=== PATIENT | female | born 2000 | race Hispanic/Latino ===

== ENCOUNTER 2024-02-11 23:20 | Emergency (ER) | payer SELFPAY ==
[2024-02-12] MEDS ORDERED: NA CHLORIDE 0.9% 1,000 ML ONE (00:15)
[2024-02-12] MEDS ORDERED: ONDANSETRON 4 MG/2 ML VIAL ONE (00:15)
[2024-02-12] MEDS ORDERED: FAMOTIDINE 20 MG/2 ML VIAL IV ONE (00:15)
[2024-02-12 00:20] LABS: Absolute Basophils 0.1 K/uL (0-0.5); Absolute Eosinophils 0.2 K/uL (0-0.5); Absolute Lymphocytes (CBC) 2.1 K/uL (0.7-4.9); Absolute Monocytes 0.7 K/uL (0.1-1.3); Absolute Neutrophil 5.3 K/uL (1.8-8.0); Eosinophils % 2.3 % (0-4.4); Hematocrit 39.6 % (36.0-45.0); Hemoglobin 13.3 g/dL (12.0-15.0); Lymphocytes % 25.2 % (15.3-44.8); MCH 28.3 pg (27.0-35.0); MCHC 33.5 g/dL (32.0-36.0); MCV 84.3 fL (80-100); MPV 8.2 fL (7.6-11.3); Monocytes % 8.2 % (3.3-12.3); Neutrophils % 63.3 % (41.7-73.7); Nucleated RBC Absolute Count 0.1 (0-0); Nucleated Red Blood Cells % 1.2 % (0-0); Platelets 280 thou/uL (152-406); Red Cell Distribution Width 14.8 % (12.1-15.2)
[2024-02-12 00:34] LABS: Specific Gravity 1.031 (1.005-1.030); Specific Gravity > 1.030 (1.005-1.030); Sqamous Epithelial <5 /HPF (None Seen); Urine Bacteria None Seen /HPF (<20); Urine Bilirubin NEGATIVE (Negative); Urine Blood Negative (Negative); Urine Clarity Clear (Clear); Urine Color Light-Yellow (Yellow); Urine Culture Reflex Order NOT NEEDED; Urine Glucose NEGATIVE (Negative); Urine Ketones NEGATIVE (Negative); Urine Microscopic Reflex YN ORDER UMIC; Urine Mucus 1+ /HPF (None Seen); Urine Nitrite NEGATIVE (Negative); Urine Protein TRACE (Negative); Urine RBC <5 /HPF (None Seen); Urine Urobilinogen 1+ (Normal); Urine WBC <5 /HPF (<5); Urine pH 5.5 (5.0-7.0)
[2024-02-12] MEDS ORDERED: KETOROLAC 30 MG/ML INJ ONE (00:41)
[2024-02-12 00:45] LABS: Albumin/Globulin Ratio 1.2 (1.1-1.8); Anion Gap 6.4 mEq/L (5.0-15.0); Bilirubin Total 0.4 mg/dL (0.2-1.0); Globulin 3.4 g/dL (2.3-3.5); Potassium 3.4 mEq/L (3.5-5.1); Protein, Total 7.4 g/dL (6.4-8.2)
--- NOTE | 2024-02-12 01:38 | ER ---
Nurse's Notes [facility] Name: Ольга Hutchinson Age: 23 yrs Sex: Female : 2000 Arrival Date: 02/11/2024 Time: 23:20 Bed 6 Private MD: Diagnosis: Epigastric pain;Nausea Presentation: 02/10 23:37 Chief complaint: Patient states: abdominal pain that has been off and on today but has as6 greatly worsened in the last 2 hours. Coronavirus screen: At this time, the client does not indicate any symptoms associated with coronavirus-19. Ebola Screen: No symptoms or risks identified at this time. Initial Sepsis Screen: Does the patient meet any 2 criteria? No. Patient's initial sepsis screen is negative. Does the patient have a suspected source of infection? No. Patient's initial sepsis screen is negative. Risk Assessment: Do you want to hurt yourself or someone else? Patient reports no desire to harm self or others. Onset of symptoms was February 11, 2024. 23:37 Acuity: RACHELLE 3 as6 23:37 Method Of Arrival: Ambulatory as6 Triage Assessment: 23:36 General: Appears uncomfortable, Behavior is calm, cooperative. Pain: Complains of pain as6 in abdomen. GI: Reports upper abdominal pain, nausea. 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 - Infectious Disease History:: Denies. - Social history:: Smoking status: Patient reports the use of cigarette tobacco products. Screenin/06 00:20 [facility] ED Fall Risk Assessment (Adult) History of falling in the last 3 months, bm8 including since admission No falls in past 3 months (0 pts) Confusion or Disorientation No (0 pts) Intoxicated or Sedated No (0 pts) Impaired Gait No (0 pts) Mobility Assist Device Used No (0 pt) Altered Elimination No (0 pt) Score/Fall Risk Level 0 - 2 = Low Risk. [facility] ED Fall Risk Assessment (Adult) Score/Fall Risk Level 0 - 2 = Low Risk Oriented to surroundings, Maintained a safe environment, Educated pt \T\ family on fall prevention, incl call for assistance when getting out of bed. Abuse screen: Denies threats or abuse. Nutritional screening: No deficits noted. Tuberculosis screening: No symptoms or risk factors identified. Assessment: 00:20 Reassessment: Patient appears in no apparent distress at this time. Patient and/or bm8 family updated on plan of care and expected duration. Pain level reassessed. Patient is alert, oriented x 3, equal unlabored respirations, skin warm/dry/pink. General: Appears in no apparent distress. uncomfortable, Behavior is calm, cooperative, appropriate for age. Pain: Complains of pain in epigastric area Pain does not radiate. Pain currently is 10 out of 10 on a pain scale. Quality of pain is described as burning, Pain began This morning about 0800 Is intermittent, lasting more than 1 hour. Neuro: No deficits noted. Level of Consciousness is awake, alert, obeys commands, Oriented to person, place, time, situation. Cardiovascular: No deficits noted. Denies chest pain, shortness of breath, Heart tones S1 S2 Capillary refill < 3 seconds Patient's skin is warm and dry. Respiratory: No deficits noted. Airway is patent Respiratory effort is even, unlabored, Respiratory pattern is regular, Breath sounds are clear bilaterally. GI: Bowel sounds present X 4 quads. Abd is soft and non tender X 4 quads. Reports upper abdominal pain, epigastric pain, indigestion, Pain is 10 out of 10 on a pain scale. : No deficits noted. No signs and/or symptoms were reported regarding the genitourinary system. EENT: No deficits noted. No signs and/or symptoms were reported regarding the EENT system. Derm: No deficits noted. No signs and/or symptoms reported regarding the dermatologic system. Musculoskeletal: No deficits noted. No signs and/or symptoms reported regarding the musculoskeletal system. 01:51 Reassessment: Patient appears in no apparent distress at this time. Patient and/or bm8 family updated on plan of care and expected duration. Pain level reassessed. Patient is alert, oriented x 3, equal unlabored respirations, skin warm/dry/pink. Patient states feeling better. Patient states symptoms have improved. Vital Signs: 02/10 23:36 BP 114 / 76; Pulse 83; Resp 16 S; Temp 97.4(O); Pulse Ox 100% on R/A; Weight 70 kg (R); as6 Height 5 ft. 2 in. (R); Pain 8/10; 02/11 00:20 BP 113 / 75; Pulse 86; Resp 18; Temp 97.4; Pulse Ox 100% on R/A; Pain 10/10; bm8 01:51 BP 116 / 79; Pulse 86; Resp 20; Temp 97.5; Pulse Ox 100% on R/A; Pain 2/10; bm8 02/10 23:36 Body Mass Index 27.69 (70.00 kg, 159 cm) as6 02/10 23:36 Pain Scale: Adult as6 02/11 00:20 Pain Scale: Adult bm8 01:51 Pain Scale: Adult bm8 [place] Coma Score: 00:20 Eye Response: spontaneous(4). Motor Response: obeys commands(6). Verbal Response: bm8 oriented(5). Total: 15. ED Course: 02/10 23:24 Patient arrived in ED. im 23:26 Flo Manzano PA is PHCP. cp 23:26 Alonzo Tee MD is Attending Physician. cp 23:36 Arm band placed on. as6 23:38 Triage completed. 6 02/11 00:15 Renny Guerra, RN is Primary Nurse. bm8 00:16 CBC with Diff Sent. km8 00:16 CMP Sent. km8 00:16 Lipase Sent. km8 00:16 Test, Urine Sent. km8 00:16 Urinalysis w/ reflexes Sent. km8 00:20 Patient has correct armband on for positive identification. Bed in low position. Call bm8 light in reach. Side rails up X 1. Adult w/ patient. Pulse ox on. NIBP on. Door closed. Noise minimized. Visitors limited. Verbal reassurance given. 00:20 No provider procedures requiring assistance completed. Inserted saline lock: 20 gauge bm8 in right antecubital area, using aseptic technique. Blood collected. 00:30 US Abdomen Limited In Process Unspecified. EDMS 00:53 XRAY Chest (1 view) In Process Unspecified. EDMS 01:51 Provided Education on: discharge instructions. bm8 01:51 IV discontinued, intact, bleeding controlled, No redness/swelling at site. Pressure bm8 dressing applied. Administered Medications: 00:20 Drug: Ondansetron IVP 4 mg IVP once; over 2 minutes Route: IVP; Site: right antecubital;bm8 00:44 Follow up: Response: No adverse reaction bm8 00:44 Follow up: Response: No adverse reaction bm8 00:20 Drug: Famotidine IVP 20 mg IVP once; dilute with 10 mL 0.9% NaCl; give over 2 minutes bm8 Route: IVP; Site: right antecubital; 00:44 Follow up: Response: No adverse reaction bm8 01:50 Follow up: Response: No adverse reaction bm8 00:20 Drug: NS 0.9% IV 1000 ml IV at 1 bolus Per protocol; 1000 mL bolus Route: IV; Rate: 1 bm8 bolus; Site: right antecubital; 01:50 Follow up: Response: No adverse reaction; IV Status: Completed infusion; IV Intake: bm8 1000ml 00:40 Drug: Ketorolac IVP 15 mg IVP once Route: IVP; Site: right antecubital; bm8 01:40 Follow up: Response: No adverse reaction bm8 01:50 Drug: GI Cocktail without - (Maalox PO 30 ml, Lidocaine Mucous Membrane 2 % 15 bm8 ml) PO once Route: PO; 02:01 Follow up: Response: No adverse reaction bm8 Medication: 00:20 VIS not applicable for this client. bm8 Intake: 01:50 IV: 1000ml; Total: 1000ml. bm8 Outcome: 01:38 Discharge ordered by . cp 01:51 Discharged to home ambulatory, bm8 01:51 Condition: stable 01:51 Discharge instructions given to patient, family, Instructed on discharge instructions, follow up and referral plans. medication usage, safety practices, Demonstrated understanding of instructions, follow-up care, medications, Prescriptions given X 2, 01:59 Patient left the ED. bm8 Signatures: Dispatcher [employer] EDMS Flo Manzano PA PA cp Slawson, Ashby RN RN as6 Eneida Garcia Katie RN RN km8 Renny Guerra RN RN bm8
--- NOTE | 2024-02-12 01:38 | EDPHYS ---
Physician Documentation [facility] Name: Ольга Hutchinson Age: 23 yrs Sex: Female : 2000 Arrival Date: 02/11/2024 Time: 23:20 Bed 6 Private MD: ED Physician Alonzo Tee HPI: 02/10 23:50 This 23 yrs old Female presents to ER via Ambulatory with complaints of cp Abdominal Pain, Nausea. 23:50 The patient presents with abdominal pain in the upper abdomen. Associated signs and cp symptoms: Pertinent positives: nausea. 23:50 Onset: The symptoms/episode began/occurred today, and became worse 2 hour(s) ago. cp 23:50 The symptoms radiate to chest. The symptoms are described as waxing/waning. Severity of cp pain: in the emergency department the pain is actually worse. 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 - Infectious Disease History:: Denies. - Social history:: Smoking status: Patient reports the use of cigarette tobacco products. ROS: 23:55 Constitutional: Negative for body aches, chills, fever, poor PO intake, cp 23:55 Eyes: Negative for injury, pain, redness, and discharge, cp 23:55 ENT: Negative for drainage from ear(s), ear pain, sore throat, difficulty swallowing, difficulty handling secretions, 23:55 Respiratory: Negative for cough, shortness of breath, wheezing, 23:55 Abdomen/GI: Positive for abdominal pain, nausea, Negative for vomiting, diarrhea, constipation, 23:55 Back: Negative for pain at rest, pain with movement, 23:55 All other systems are negative, Exam: 23:59 Constitutional: The patient appears in no acute distress, alert, awake, cp non-diaphoretic, non-toxic, well developed, well nourished, uncomfortable, 23:59 Head/Face: Normocephalic, atraumatic. cp 23:59 Eyes: Periorbital structures: appear normal, Conjunctiva: normal, no exudate, no injection, Sclera: no appreciated abnormality, Lids and lashes: appear normal, bilaterally, 23:59 ENT: External ear(s): are unremarkable, Nose: is normal, Mouth: Lips: moist, Oral mucosa: pink and intact, moist, Posterior pharynx: Airway: no evidence of obstruction, patent, erythema, is not appreciated, 23:59 Chest/axilla: Inspection: normal, 23:59 Cardiovascular: Rate: normal, Rhythm: regular, 23:59 Respiratory: the patient does not display signs of respiratory distress, Respirations: normal, no use of accessory muscles, no retractions, labored breathing, is not present, Breath sounds: are clear throughout, no decreased breath sounds, no stridor, no wheezing, 23:59 Abdomen/GI: Inspection: abdomen appears normal, Bowel sounds: active, all quadrants, Palpation: soft, in all quadrants, moderate abdominal tenderness, in the epigastric area and right upper quadrant, rebound tenderness, is not appreciated, involuntary guarding, is not appreciated, 23:59 Back: CVA tenderness, is absent, Vital Signs: 23:36 BP 114 / 76; Pulse 83; Resp 16 S; Temp 97.4(O); Pulse Ox 100% on R/A; Weight 70 kg (R); as6 Height 5 ft. 2 in. (R); Pain 8/10; 02/11 00:20 BP 113 / 75; Pulse 86; Resp 18; Temp 97.4; Pulse Ox 100% on R/A; Pain 10/10; bm8 01:51 BP 116 / 79; Pulse 86; Resp 20; Temp 97.5; Pulse Ox 100% on R/A; Pain 2/10; bm8 02/10 23:36 Body Mass Index 27.69 (70.00 kg, 159 cm) as6 02/10 23:36 Pain Scale: Adult as6 02/11 00:20 Pain Scale: Adult bm8 01:51 Pain Scale: Adult bm8 [place] Score: 00:20 Eye Response: spontaneous(4). Motor Response: obeys commands(6). Verbal Response: bm8 oriented(5). Total: 15. MDM: 02/10 23:29 Patient medically screened. cp 02/11 00:00 Differential diagnosis: cholecystitis, Cholelithiasis, gastritis, gastroesophageal cp reflux disease, GI Bleed, non-specific abd pain, pancreatitis, Peptic Ulcer Disease, Perf. Duodenal Ulcer, Perf. Gastric Ulcer, Pyelonephritis, Ureterolithiasis, urinary tract infection. 01:37 Data reviewed: vital signs, nurses notes, lab test result(s), radiologic studies, plain cp films, ultrasound, and as a result, I will discharge patient. 01:37 I considered the following discharge prescriptions or medication management in the emergency department Medications were administered in the Emergency Department. See MAR. Counseling: I had a detailed discussion with the patient and/or guardian regarding the historical points, exam findings, and any diagnostic results supporting the discharge/admit diagnosis, lab results, radiology results, to return to the emergency department if symptoms worsen or persist or if there are any questions or concerns that arise at home. Response to treatment: the patient's symptoms have markedly improved after treatment, and as a result, I will discharge patient. Special discussion: Based on the patient's Hx, exam, and Dx evaluation, there is no indication for emergent surgery or inpatient Tx. It is understood by the patient/guardian that if the Sx's persist or worsen they need to return immediately for re-evaluation. 02/10 23:43 Order name: CBC with Diff; Complete Time: 00:48 02/11 00:48 Interpretation: Reviewed. 02/10 23:43 Order name: CMP; Complete Time: 00:48 02/11 00:48 Interpretation: Normal except: K 3.4. 02/10 23:43 Order name: Lipase; Complete Time: 00:48 02/10 23:43 Order name: Test, Urine; Complete Time: 00:48 02/10 23:43 Order name: Urinalysis w/ reflexes; Complete Time: 00:48 02/11 00:48 Interpretation: Normal except: Urine SG > 1.030; UPROT TRACE; UUROB 1+. 02/11 00:12 Order name: XRAY Chest (1 view) 02/11 00:12 Order name: US Abdomen Limited 02/10 23:43 Order name: IV Saline Lock; Complete Time: 00:15 02/10 23:43 Order name: Labs collected and sent; Complete Time: 00:16 cp Administered Medications: 00:20 Drug: Ondansetron IVP 4 mg IVP once; over 2 minutes Route: IVP; Site: right antecubital;bm8 00:44 Follow up: Response: No adverse reaction bm8 00:44 Follow up: Response: No adverse reaction bm8 00:20 Drug: Famotidine IVP 20 mg IVP once; dilute with 10 mL 0.9% NaCl; give over 2 minutes bm8 Route: IVP; Site: right antecubital; 00:44 Follow up: Response: No adverse reaction bm8 01:50 Follow up: Response: No adverse reaction bm8 00:20 Drug: NS 0.9% IV 1000 ml IV at 1 bolus Per protocol; 1000 mL bolus Route: IV; Rate: 1 bm8 bolus; Site: right antecubital; 01:50 Follow up: Response: No adverse reaction; IV Status: Completed infusion; IV Intake: bm8 1000ml 00:40 Drug: Ketorolac IVP 15 mg IVP once Route: IVP; Site: right antecubital; bm8 01:40 Follow up: Response: No adverse reaction bm8 01:50 Drug: GI Cocktail without - (Maalox PO 30 ml, Lidocaine Mucous Membrane 2 % 15 bm8 ml) PO once Route: PO; 02:01 Follow up: Response: No adverse reaction bm8 Disposition: 02/12 00:52 Co-signature as Attending Physician, Alonzo Tee MD I reviewed the patient's care rt provided by the Advanced Practice Provider and agree with the diagnosis and treatment plan. Disposition Summary: 02/12/24 01:38 Discharge Ordered Notes: Location: Home cp Problem: new cp Symptoms: have improved cp Condition: Stable cp Diagnosis - Epigastric pain cp - Nausea cp Followup: cp - With: Private Physician - When: 2 - 3 days - Reason: Worsening of condition Discharge Instructions: - Discharge Summary Sheet cp - Gastroesophageal Reflux Disease, Adult cp - Nausea, Adult cp Forms: - Medication Reconciliation Form cp - Thank You Letter cp - Antibiotic Education cp - Prescription Opioid Use cp - Patient Portal Instructions cp - Leadership Thank You Letter cp Prescriptions: - Protonix 40 mg Oral Tablet - take 1 tablet ORAL route once daily; 30 tablet; Refills: 0, Product Selection cp Permitted - Zofran 4 mg Oral Tablet - take 1 tablet ORAL route every 12 hours As needed; 20 tablet; Refills: 0, cp Product Selection Permitted Signatures: Dispatcher [employer] EDMS Flo Manzano PA PA cp Slawson, Ashby, RN RN as6 Alonzo Tee MD MD rt Renny Guerra, RN RN bm8 Corrections: (The following items were deleted from the chart) 02/10 23:44 23:44 CBC+H.LAB.BRZ ordered. EDMS EDMS 23:44 23:44 COMPREHENSIVE METABOLIC PANEL+C.LAB.BRZ ordered. EDMS EDMS 23:44 23:44 LIPASE+C.LAB.BRZ ordered. EDMS EDMS 23:44 23:44 Test, Urine+UC.LAB.BRZ ordered. EDMS EDMS 23:44 23:44 Urinalysis+U.LAB.BRZ ordered. EDMS EDMS
[2024-02-12] MEDS ORDERED: MAGNES/ALUMIN/SIMET 30ML UCUP ONE (01:44)
[2024-02-12] MEDS ORDERED: LIDOCAINE VISCOUS 2% 10ML ORAL SOLN ONE (01:44)
[2024-02-12 08:15] VITALS: BP 116/79; TEMP 97.5; O2SAT 100
--- NOTE | 2024-02-12 20:11 | RAD REPORT ---
EXAM DESCRIPTION: RAD - Chest Single View - 02/12/2024 12:52 am CLINICAL HISTORY: The patient is 23 years old and is Female; epigastric pain TECHNIQUE: Frontal view of the chest. COMPARISON: No relevant prior studies available. FINDINGS: Lungs: Mildly prominent interstitial markings. No consolidation. Pleural space: Unremarkable. No pneumothorax. Heart: Unremarkable. Mediastinum: Unremarkable. Normal mediastinal contour. Bones/joints: No acute findings. IMPRESSION: No acute findings in the chest. Electronically signed by: Raffi Potrer MD 02/12/2024 01:24 AM CDT Due to temporary technical issues with the PACS/Fluency reporting system, reports are being signed by the in house radiologists without review as a courtesy to insure prompt reporting. The interpreting radiologist is fully responsible for the content of the report.
--- NOTE | 2024-02-12 21:05 | RAD REPORT ---
EXAM DESCRIPTION: US - Abdomen Exam Limited - 02/12/2024 12:28 am CLINICAL HISTORY: The patient is 23 years old and is Female; EPIGASTRIC PAIN TECHNIQUE: Real-time ultrasound of the right upper quadrant with image documentation. COMPARISON: No relevant prior studies available. FINDINGS: GALLBLADDER: No gallbladder wall thickening or pericholecystic fluid. No gallstones. Neg ative sonographic Forbes sign. COMMON BILE DUCT: Unremarkable as visualized. No stones. No dil ation. IMPRESSION: Normal gallbladder ultrasound. Electronically signed by: Liza Reyna MD 02/12/2024 01:19 AM CDT Due to temporary technical issues with the PACS/Fluency reporting system, reports are being signed by the in house radiologists without review as a courtesy to insure prompt reporting. The interpreting radiologist is fully responsible for the content of the report.
== END 2024-02-12 01:59 | disposition home or self-care (01) ==
LOC: ER 23:20
DX: R10.13 Epigastric pain (principal); R11.0 Nausea; Z72.0 Tobacco use
CPT/HCPCS: 36415; 71045; 76705; 80053; 81001; 81025; 83690; 85025; 96361; 96374; 96375; 99284; J2405; J7030